=== PATIENT | female | born 1975 | race Caucasian/White ===

== ENCOUNTER 2016-06-23 09:01 | Emergency (ER) | payer MEDICAID, OTHER ==
[~2016-06-23] VITALS: Ht 157.5 cm; Wt 65.8 kg
[2016-06-23 09:59] VITALS: BP 114/57
--- NOTE | 2016-06-23 10:15 | NUR ---
PT TO BED 6 AT THIS TIME.
--- NOTE | 2016-06-23 10:16 | NUR ---
40/F BIB FAMILY C/O N/V & ABDOMINAL PAIN X 3 DAYS. PT DENIES DIARRHEA . SKIN IS PINK/WARM/DRY; AAOX4 WITH EVEN AND STEADY GAIT; LUNGS CLEAR BL; HR EVEN AND REGULAR; PT DENIES ANY FEVER, CP, SOB, OR COUGH AT THIS TIME; PATIENT STATES PAIN OF 8/10 AT THIS TIME; VSS; PATIENT POSITIONED FOR COMFORT; HOB ELEVATED; BEDRAILS UP X2; BED DOWN. ER MD MADE AWARE OF PT STATUS.
--- NOTE | 2016-06-23 10:17 | NUR ---
LAB AT BEDSIDE
--- NOTE | 2016-06-23 11:19 | NUR ---
WARM BLANKET PROVIDED TO PT FOR COMFORT. WILL CONTINUE TO MONITOR.
[2016-06-23] MEDS ORDERED: ALUMINUM HYD/MAG/SIMETHICONE 30 ML, BELLADONNA/PHENOBARBITAL 10 ML, LIDOCAINE VISCOUS 2... PO ONE (12:20)
[2016-06-23] MEDS ORDERED: ONDANSETRON 4 MG ODT PO ONE (12:45)
[2016-06-23 13:01] VITALS: BP 111/65
--- NOTE | 2016-06-23 13:01 | NUR ---
Patient discharged with v/s stable. Written and verbal after care instructions given and explained. Patient alert, oriented and verbalized understanding of instructions. Ambulatory with steady gait. All questions addressed prior to discharge. ID band removed. Patient advised to follow up with PMD. Rx of ZOFRAN,CIPRO & PRILOSEC given. Patient educated on indication of medication including possible reaction and side effects. Opportunity to ask questions provided and answered.
== END 2016-06-23 13:01 | disposition home or self-care (01) ==
LOC: MED 09:01
DX: R10.12 Left upper quadrant pain (principal); R11.2 Nausea with vomiting, unspecified; R19.7 Diarrhea, unspecified; Z90.710 Acquired absence of both cervix and uterus
CPT/HCPCS: 36415; 80053; 81002; 81025; 83690; 85025; 99284; S0119

== ENCOUNTER 2016-06-28 19:40 | Emergency (ER) | payer MEDICAID, OTHER ==
[~2016-06-28] VITALS: Ht 167.6 cm; Wt 66.2 kg
[2016-06-28 19:54] VITALS: BP 130/68
--- NOTE | 2016-06-28 20:10 | NUR ---
PT TAKEN TO BED 7
--- NOTE | 2016-06-28 20:17 | NUR ---
PT IS A 40Y/F BIB FAMILY C/O OF LLQ PAIN RADIATES TO THE BACK W/ NAUSEA. DENIES VOMITTING/ DIARRHEA. PAIN 10/10 IN SCALE. DENIES PAST MED HX. PT WAS HERE 2 DAYS AGO FOR SAME COMPLAINTS.
--- NOTE | 2016-06-28 20:22 | NUR ---
Dr. Pimentel evaluating patient at bedside.
--- NOTE | 2016-06-28 20:56 | NUR ---
PT TAKEN TO CT
--- NOTE | 2016-06-28 21:07 | NUR ---
PT RETURN FROM CT
--- NOTE | 2016-06-28 21:47 | NUR ---
DR. ROTHMAN AT BEDSIDE FOR PELVIC EXAM WITH FEMALE SUPPLEMENTAL MANAGER [employer] [facility]
--- NOTE | 2016-06-28 21:50 | NUR ---
FEMALE STEMHOLE BORER FOR DR. ROTHMAN FOR PELVIC EXAM
[2016-06-28] MEDS ORDERED: LEVOFLOXACIN 500 MG/D5W PREMIX 100 ML IV ONE (21:55)
[2016-06-28] MEDS ORDERED: KETOROLAC 30 MG/ML VIAL IVP ONE (21:55)
[2016-06-28] MEDS ORDERED: metroNIDAZOLE 500 MG/NS PREMIX 100 ML IV ONE (21:55)
[2016-06-29 00:34] VITALS: BP 110/71
--- NOTE | 2016-06-29 00:35 | NUR ---
Patient discharged with v/s stable. Written and verbal after care instructions given and explained. Patient alert, oriented and verbalized understanding of instructions. Ambulatory with steady gait. All questions addressed prior to discharge. ID band removed. Patient advised to follow up with PMD. Rx of DOXYCYCLINE 100MG PO, TYLENOL 500MG PO given. Patient educated on indication of medication including possible reaction and side effects. Opportunity to ask questions provided and answered.
== END 2016-06-29 00:35 | disposition home or self-care (01) ==
LOC: MED 19:40
DX: K58.9 Irritable bowel syndrome, unspecified (principal)
CPT/HCPCS: 36415; 74176; 80053; 81001; 81025; 82150; 83690; 85025; 87070; 87210; 87491; 96365; 96368; 96375; 99285; J1885; J1956; J3490; J7030

== ENCOUNTER 2017-12-03 20:11 | Emergency (ER) | payer MEDICAID, OTHER ==
[~2017-12-03] VITALS: Ht 157.5 cm; Wt 70.8 kg
[2017-12-03 20:19] VITALS: BP 126/70
--- NOTE | 2017-12-03 20:24 | NUR ---
PT AMBULATORY TO ER LOBBY W/ STEADY GAIT IN STABLE CONDITION.
--- NOTE | 2017-12-03 21:08 | NUR ---
PT TAKEN TO BED 8
--- NOTE | 2017-12-03 21:45 | NUR ---
PATIENT LEFT WITHOUT BEING SEEN BY DR. LIEBERMAN. NO FURTHER CARE PROVIDED FOR PATIENT.
== END 2017-12-03 21:45 | disposition left against medical advice (07) ==
LOC: MED 20:11
DX: R10.12 Left upper quadrant pain (principal); Z53.21 Procedure and treatment not carried out due to patient leaving prior to being seen by health care provider